=== PATIENT | female | born 2005 | race Caucasian/White ===

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

== ENCOUNTER → 2024-01-13 | Outpatient (CLI) | payer BC ==
[~2024-01-13] MED LIST: ACET1TAB55 PO; ALB2.5NEB NEB; CEFD300CAP PO; LARI1TAB9 PO; RIZA5TAB52 SL; VENTAER INH
== END ==
LOC: M WHC 07:24
PROVIDERS: ATTEND Nurse Practitioner
DX: N28.1 Cyst of kidney, acquired (principal)